=== PATIENT | male | born 1960 | race Caucasian/White ===

== ENCOUNTER 2021-06-26 03:11 | Emergency (ER) | payer BC, SELFPAY ==
[2021-06-26 03:15] VITALS: BP 141/95; PULSE 86; RESP 18; TEMP 35.9; O2SAT 98
--- NOTE | 2021-06-26 03:26 | ED.EXTPRO ---
HPI - Extremity Problem General Chief complaint: Extremity Problem,Nontraumatic Stated complaint: Foot pain Time Seen by Provider: 06/26/21 03:15 Source: patient Mode of arrival: EMS Limitations: no limitations History of Present Illness HPI Narrative: 50-year-old man with a history of peripheral vascular disease status post right above-knee amputation brought to the emergency department this evening after he began to have pain in the sole of his left foot and in the left hallux and little toes. Patient states that he had similar problems in past with his right leg prior to amputation. Patient also states that he has been having some intermittent chest pain. He denies fever, cough or cold symptoms, vomiting, diarrhea, abdominal pain, rash, dysuria and hematuria. He has not had the COVID vaccine but has had COVID 2 or 3 times. Patient states that has seen vascular surgeons in [place] ([facility]) however because that drive is too far for his family he would prefer to go to [place]. Complaint: extremity pain and cold extremity Onset (ago): hour(s) (2) Pain Consistency: constant Location: left and other (Foot) Quality: burning and sharp Relieving factors: nothing Exacerbating factors: palpation Associated symptoms: chest pain Context: history of peripheral vascular disease Related Data Home Medications Medication Instructions Recorded Confirmed amitriptyline 150 mg PO HS 06/26/21 06/26/21 amlodipine 5 mg PO DAILY 06/26/21 06/26/21 aspirin [Adult Aspirin] 325 mg PO DAILY 06/26/21 06/26/21 atorvastatin 40 mg PO DAILY 06/26/21 06/26/21 buspirone 7.5 mg PO BID 06/26/21 06/26/21 carisoprodol [Soma] 350 mg PO DAILY 06/26/21 06/26/21 clonazepam [Klonopin] 1 mg PO DAILY 06/26/21 06/26/21 gabapentin 300 mg PO TID 06/26/21 06/26/21 tamsulosin 0.4 mg PO DAILY 06/26/21 06/26/21 venlafaxine [Effexor XR] 75 mg PO DIRECTED 06/26/21 06/26/21 warfarin 7.5 mg PO DAILY 06/26/21 06/26/21 Allergies Allergy/AdvReac Type Severity Reaction Status Date / Time No Known Allergies Allergy Verified 06/26/21 03:47 Review of Systems Review of Systems: All systems reviewed & are unremarkable except as noted in HPI and below Constitutional: Constitutional: Denies chills, Denies fever(s) and Denies weakness ENT: Denies nasal congestion and Denies sore throat Cardiovascular: Cardiovascular: Reports chest pain and Denies radiating jaw, neck or arm pain Respiratory: Respiratory: Denies cough and Denies dyspnea Gastrointestinal: Gastrointestinal: Denies abdominal pain, Denies diarrhea, Denies nausea and Denies vomiting Genitourinary: Genitourinary: Denies hematuria, Denies dysuria and Denies urinary frequency Musculoskeletal: Musculoskeletal: Denies back pain, Denies arthralgias and Denies joint swelling Integumentary/Breasts: Skin/Breast: Denies pruritus, Denies erythema and Denies rash Neurologic: Denies vertigo, Denies dizziness and Denies syncope Hematologic/Lymphatic: Hematologic/Lymphatic: Reports easy bleeding and Reports easy bruising Allergic/Immunologic: Allergic/Immunologic: Denies throat swelling PMFSH Past Medical History Medical History (Updated 06/26/21 @ 03:44 by Guy Mendez MD) Peripheral vascular disease Surgical History Surgical History (Updated 06/26/21 @ 03:40 by Guy Mendez MD) Amputation of right lower extremity H/O shoulder surgery Bilateral S/P AAA repair Social History Social History (Updated 06/26/21 @ 03:41 by Guy Mendez MD) Smoking status: Current every day smoker Alcohol intake: former Substance use: current Substance use type: marijuana Living arrangements: alone Exam Const: General: alert and ill appearing chronically Orientation/consciousness: patient oriented x3 Limitations: no limitations Other: Moderate acute distress HENMT: Head: normal to inspection Mouth: Yes moist mucous membranes Throat: posterior oropharynx normal Eyes: C
--- NOTE | 2021-06-26 03:27 | ECG_ITS ---
Measurements Intervals [place] Rate: 77 P: 74 DC: 168 QRS: 40 QRSD: 92 T: 79 QT: 357 QTc: 405 Interpretive Statements SINUS RHYTHM LOW QRS VOLTAGE IN LIMB LEADS BASELINE ARTIFACT- II, III, AVR, AVL, AVF, V1 BORDERLINE ECG Electronically Signed On 06-26-2021 7:01:06 FOAM FAB[employer]ICATOR by Derek Soler D.O.
[2021-06-26] MEDS: ONDANSETRON INJ 4 MG/2 ML VIAL IV PUSH (03:48)
[2021-06-26] MEDS: HYDROmorphone HCL INJ (*CRX) 2 MG/ML VIAL 0.5 MG IV PUSH ×2 (03:49→06:07)
[2021-06-26 04:16] LABS: Basophils Absolute Auto 0.03 K/mm3 (0.00-0.10); Basophils Percent Auto 0.4 % (0.0-1.0); Eosinophils Absolute Auto 0.15 K/mm3 (0.02-0.50); Eosinophils Percent Auto 1.8 % (1.0-6.0); Hematocrit 43.4 % (40.0-54.0); Hemoglobin 14.7 g/dL (14.0-18.0); Immature Granulocyte Absolute 0.03 K/mm3 (0.00-0.00); Immature Granulocyte Percent A 0.4 % (0.0-0.0); Lymphocytes Percent Auto 29.4 % (18.0-42.0); Mean Corpuscular HGB Conc 33.9 g/dL (32.0-36.0); Mean Corpuscular Hemoglobin 31.1 pg (27.0-31.0); Mean Corpuscular Volume 91.8 fL (78.0-102.0); Mean Platelet Volume 9.9 fl (8.7-11.0); Monocytes Absolute Auto 0.53 K/mm3 (0.10-0.90); Monocytes Percent Auto 6.2 % (2.0-11.0); Neutrophils Absolute Auto 5.3 K/mm3 (1.7-7.2); Neutrophils Percent Auto 61.8 % (50.0-70.0); Platelet Count Result 172 K/mm3 (150-420); Red Blood Count 4.73 M/mm3 (4.70-6.10); Red Cell Distribution Width 13.4 % (11.6-14.4); White Blood Count 8.5 K/mm3 (4.8-10.8)
[2021-06-26 04:20] LABS: INR 1.9; Partial Thromboplastin Time 34.3 SEC (23.90-30.70); Prothrombin Time 19.7 Seconds (9.50-12.10)
[2021-06-26 04:23] LABS: Alanine Aminotransferase 20 U/L (16-63); Albumin Level 3.8 g/dL (3.4-5.0); Alkaline Phosphatase 67 U/L (46-116); Anion Gap 8 mmol/L (8-16); Aspartate Amino Transferase 11 U/L (15-37); Bilirubin,Total 0.2 mg/dL (0.00-1.00); Blood Urea Nitrogen 12 mg/dL (7-18); Calcium 8.9 mg/dL (8.5-10.1); Carbon Dioxide 28 mmol/L (21-32); Chloride 102 mmol/L (98-108); Creatine Kinase 131 U/L (39-308); Estimated CRCL calculation 55 ml/min; Estimated Glomerular Filt Rate > 60; Glucose 113 mg/dL (70-99); Magnesium 1.9 mg/dL (1.8-2.4); Osmolality Calculated 286 mOsm/kg (285-295); Potassium 3.9 mmol/L (3.5-5.1); Sodium 138 mmol/L (136-145); Total Protein 7.4 g/dL (6.4-8.2); Troponin I 7.9 ng/L (0.00-60.4)
[2021-06-26 04:26] LABS: Lactic Acid Reflex 0.4 mmol/L (0.4-2.0)
[2021-06-26 04:40] LABS: SARS-CoV-2 RNA PCR Negative (Negative)
--- NOTE | 2021-06-26 05:16 | PC.NURSE ---
Calls made to [facility], no beds no wait list, call to [facility], pt placed on wait list, no beds available anywhere in system at this time.
--- NOTE | 2021-06-26 05:43 | PC.NURSE ---
Call to [facility] system, will have vascular to speak c Dr Mendez, beds may be available in [facility] in 24-48 hrs. Will await call back from Dr Trejo who is oncall for vascular services.
--- NOTE | 2021-06-26 05:46 | PC.NURSE ---
Dr Mendez speaking c [facility] system and spoke to Vascular surgeon Dr Valadez. Awaiting orders and possible transfer.
--- NOTE | 2021-06-26 05:53 | PC.NURSE ---
Pt accepted by Dr Valadez for direct transfer to [facility]. # given for report.
--- NOTE | 2021-06-26 06:01 | PC.NURSE ---
Report called to Elma at [facility] for pt transfer.
[2021-06-26] MEDS: HEPARIN SODIUM 5,000 UNITS/ML VIAL 5000 UNITS IV PUSH (06:09)
[2021-06-26 06:11] VITALS: BP 121/90; PULSE 84; RESP 18; TEMP 36.3; O2SAT 96
[2021-06-26] MEDS: HEPARIN SOD/D5W 100 UNITS/ML 25,000 UNITS/250 ML BAG 11 UNITS IV CONT (06:19)
[2021-06-26 06:26] LABS: Basophils Absolute Auto 0.04 K/mm3 (0.00-0.10); Basophils Percent Auto 0.5 % (0.0-1.0); Eosinophils Absolute Auto 0.14 K/mm3 (0.02-0.50); Eosinophils Percent Auto 1.7 % (1.0-6.0); Hematocrit 41.6 % (40.0-54.0); Hemoglobin 14.3 g/dL (14.0-18.0); Immature Granulocyte Absolute 0.02 K/mm3 (0.00-0.00); Immature Granulocyte Percent A 0.2 % (0.0-0.0); Lymphocytes Absolute Auto 2.93 K/mm3 (1.10-4.50); Lymphocytes Percent Auto 35.2 % (18.0-42.0); Mean Corpuscular HGB Conc 34.4 g/dL (32.0-36.0); Mean Corpuscular Hemoglobin 31.3 pg (27.0-31.0); Mean Platelet Volume 10.1 fl (8.7-11.0); Monocytes Absolute Auto 0.58 K/mm3 (0.10-0.90); Neutrophils Absolute Auto 4.6 K/mm3 (1.7-7.2); Neutrophils Percent Auto 55.4 % (50.0-70.0); Platelet Count Result 159 K/mm3 (150-420); Red Blood Count 4.57 M/mm3 (4.70-6.10); Red Cell Distribution Width 13.4 % (11.6-14.4); White Blood Count 8.3 K/mm3 (4.8-10.8)
[2021-06-26 07:23] LABS: INR 2.6; Prothrombin Time 26.1 Seconds (9.64-11.0)
== END 2021-06-26 06:43 | disposition short-term general hospital (02) ==
PROVIDERS: Emergency Provider Emergency Medicine
DX: I73.9 Peripheral vascular disease, unspecified (principal); M79.672 Pain in left foot; Z20.822 Contact with and (suspected) exposure to COVID-19
CPT/HCPCS: 36415; 80053; 82550; 83605; 83735; 84484; 85025; 85610; 85730; 93005; 96374; 96375; 96376; 99285; C9803; J1170; J1644; J2405; U0003; U0005